=== PATIENT | male | born 1970 | race Caucasian/White ===

== ENCOUNTER 2023-02-08 12:18 | Emergency (ER) | payer OTHER ==
[~2023-02-08] VITALS: Ht 182 cm; Wt 87.0 kg
--- NOTE | 2023-02-08 12:30 | ED Cough/URI ---
General Chief Complaint: Cough/Cold/Flu Symptoms Stated Complaint: CHEST CONGESTION Source: patient Exam Limitations: no limitations History of Present Illness Date Seen by Provider: Feb 08, 2023 Time Seen by Provider: 12:21 Initial Comments 52-year-old male with longstanding smoking history coming in due to 1 week of productive cough and congestion. Very mild dyspnea associated with it. Has been productive of sometimes green sputum. Denies any real chest pain associated with it, fever, nausea, vomiting, diarrhea, abdominal pain, rash, weakness, numbness, or any other concerns. He smoked for more than 20 years and then transitioned over to a vape. He is otherwise denying any other acute complaints. Allergies and Home Medications Allergies Coded Allergies: No Known Drug Allergies (Unverified , 02/08/23) Patient Home Medication List Home Medication List Reviewed: Yes Albuterol Sulfate (Proventil Hfa) 90 Mcg Hfa.aer.ad, 2 PUFF INH Q4H PRN for WHEEZING Prescribed by: RUBY NGUYEN on 02/08/23 1251 Doxycycline Hyclate (Doxycycline Hyclate) 100 Mg Tablet, 100 MG PO BID Prescribed by: RUBY NGUYEN on 02/08/23 1251 Methylprednisolone (Methylprednisolone Dose Pack) 4 Mg Tab.ds.pk, 4 MG PO UD Prescribed by: RUBY NGUYEN on 02/08/23 1251 Review of Systems Review of Systems Constitutional: No fever EENTM: no symptoms reported Respiratory: cough Cardiovascular: no symptoms reported Gastrointestinal: no symptoms reported Genitourinary: no symptoms reported Musculoskeletal: no symptoms reported Skin: no symptoms reported Psychiatric/Neurological: No Symptoms Reported Hematologic/Lymphatic: No Symptoms Reported Past Gdhibgz-Ysdsgk-Jecnlo Hx Patient Social History Tobacco Use?: Yes Use of E-Cig and/or Vaping dev: Yes Substance use?: No Alcohol Use?: No Physical Exam Vital Signs - First Documented 02/08/23 02/08/23 12:29 12:31 Temp 36.2 Pulse 77 Resp 18 B/P (MAP) 116/91 (99) Pulse Ox 99 O2 Delivery Room Air Capillary Refill : Height: '" Weight: lbs. oz. kg; BMI Method: General Appearance: WD/WN, no apparent distress Eyes: Bilateral Eye Normal Inspection HEENT: PERRL/EOMI, normal ENT inspection, pharynx normal Neck: non-tender, full range of motion, supple, normal inspection Respiratory: chest non-tender, no respiratory distress, no accessory muscle use, wheezing Cardiovascular: regular rate, rhythm, no edema, no murmur Gastrointestinal: normal bowel sounds, non tender, soft; No distended, No guarding, No rebound Extremities: normal range of motion, non-tender, normal inspection, no pedal edema, no calf tenderness, normal capillary refill Neurologic/Psychiatric: no motor/sensory deficits, alert, normal mood/affect Skin: normal color, warm/dry Progress/Results/Core Measures Suspected Sepsis SIRS Temperature: Pulse: Respiratory Rate: Blood Pressure / Mean: Results/Orders My Orders Orders - RUBY NGUYEN MD Chest Pa/Lat (2 View) (02/08/23 12:26) Albuterol/Ipra Inhalation Soln (Duoneb I (02/08/23 12:45) Doxycycline Hyclate Tablet (Vibramycin T (02/08/23 12:31) Dexamethasone Oral Soln (Ed) (Decadron I (02/08/23 12:31) Medications Given in ED Current Medications Medications Dose Ordered Sig/Greg Route Start Time Stop Time Status Last Admin Dose Admin Albuterol/ Ipratropium 3 ml ONCE ONCE INH 02/08/23 12:45 02/08/23 12:46 DC 02/08/23 12:36 3 ML Vital Signs/I&O 02/08/23 02/08/23 12:29 12:31 Temp 36.2 Pulse 77 Resp 18 B/P (MAP) 116/91 (99) Pulse Ox 99 O2 Delivery Room Air Room Air Capillary Refill : Progress Note : Progress Note 52-year-old male with above history coming in due to 1 week of productive cough in the setting of longstanding cigarette smoke use. Differential includes pneumonia versus COPD exacerbation versus less likely PE versus viral infection. ABCs were intact and vitals were stable on presentation. Physical exam significant for bilateral wheezing. Chest x-ray on my interpretation with likely right upper lobe infiltrate with some hazy opacities in that region. Patient likely has COPD. He will be given a breathing treatment here, steroids, and antibiotics. On reassessment, wheezing had improved in all lung galicia. He is low risk for PE per [place] criteria and I do not believe further labs or imaging is warranted at this time. Prescription for antibiotics and albuterol will be sent to his pharmacy. I believe he is otherwise stable for discharge with outpatient follow-up. He was sent home with strict return precautions. Diagnostic Imaging Diagonstic Imaging: Xray (chest) Comments [facility] [place], [place] NAME: TERESA AYALA [facility] REC#: [id number] PT STATUS: REG ER : 1970 PHYSICIAN: RUBY NGUYEN MD ADMIT DATE: 02/08/23/ER FS Draft Date of Exam:02/08/23 CHEST PA/LAT (2 VIEW) EXAMINATION: Chest 2 view HISTORY: productive cough and SOB COMPARISON: None available. FINDINGS: Heart size and pulmonary vasculature are normal. The lungs are clear without consolidation, pleural effusion, or pneumothorax. Degenerative changes of the thoracic spine. Osseous structures are otherwise intact. Likely calcified granuloma in the left lower lung. IMPRESSION: 1. No acute radiographic abnormality in the chest. Dictated on workstation # [id number] Dict: 02/08/23 1237 Trans: 02/08/23 1238 CVB [id number] Interpreted by: MICAH STOLL DO Electronically signed by: Departure Impression Primary Impression: COPD exacerbation Additional Impression: Pneumonia Qualified Codes: J18.9 - Pneumonia, unspecified organism Disposition: 01 HOME, SELF-CARE Condition: Stable Departure-Patient Inst. Decision time for Depature: 12:55 Referrals: NO,LOCAL PHYSICIAN (PCP/Family) Primary Care Physician Patient Instructions: Pneumonia, Adult ED Add. Discharge Instructions: We are concerned you likely have pneumonia. You will be on antibiotics for the next week. Unless you have a fever, it is okay for you to be around others. We are also concerned given your smoking history that you may have something called COPD. We recommend following up with your regular doctor regarding this. We will start you on an inhaler as well. Take the next dose of the antibiotic doxycycline tonight before bed. Start the steroids tomorrow since you received some in the ER today. Scripts Methylprednisolone (Methylprednisolone Dose Pack) 4 Mg Tab.ds.pk 4 MG PO UD for 6 Days, #21 PKG PER DOSE PACK INSTRUCTIONS Prov: RUBY NGUYEN MD 02/08/23 Albuterol Sulfate (Proventil Hfa) 90 Mcg Hfa.aer.ad 2 PUFF INH Q4H PRN for WHEEZING for 30 Days, #1 EA Prov: RUBY NGUYEN MD 02/08/23 Doxycycline Hyclate (Doxycycline Hyclate) 100 Mg Tablet 100 MG PO BID for 7 Days, #14 TAB 0 Refills Prov: RUBY NGUYEN MD 02/08/23 Work/School Note: Work Release Form Date Seen in the Emergency Department: Feb 08, 2023 Return to Work: Feb 09, 2023 Restrictions: No Restrictions RUBY NGUYEN MD Feb 08, 2023 12:30
[2023-02-08] MEDS ORDERED: DOXYCYCLINE 100 MG (VIBRAMYCIN) TABLET PO STA (12:31)
--- NOTE | 2023-02-08 12:38 | Diagnostic Imaging Report ---
EXAMINATION: Chest 2 view HISTORY: productive cough and SOB COMPARISON: None available. FINDINGS: Heart size and pulmonary vasculature are normal. The lungs are clear without consolidation, pleural effusion, or pneumothorax. Degenerative changes of the thoracic spine. Osseous structures are otherwise intact. Likely calcified granuloma in the left lower lung. IMPRESSION: 1. No acute radiographic abnormality in the chest. Dictated by: Dictated on workstation # [id number]
[2023-02-08] MEDS ORDERED: RT-ALBUTEROL/IPRATROPIUM 3 ML (DUONEB) VIAL INH ONE (12:45)
[2023-02-08] MEDS ORDERED: ALBU6.7H13 INH (12:51)
[2023-02-08] MEDS ORDERED: METH4TAB10 PO (12:51)
[2023-02-08] MEDS ORDERED: DOXY100T2 PO (12:51)
[2023-02-08 12:54] VITALS: BP 116/91
== END 2023-02-08 12:54 | disposition home or self-care (01) ==
LOC: ER FS 12:20
DX: J44.0 Chronic obstructive pulmonary disease with (acute) lower respiratory infection (principal); J18.9 Pneumonia, unspecified organism; J44.1 Chronic obstructive pulmonary disease with (acute) exacerbation; F17.290 Nicotine dependence, other tobacco product, uncomplicated
CPT/HCPCS: 71046; 94640

== ENCOUNTER 2023-05-03 16:46 | Emergency (ER) | payer OTHER ==
[~2023-05-03] VITALS: Ht 182 cm; Wt 85.0 kg
[~2023-05-03 16:46] MED LIST: ALBU6.7H13 INH; DOXY100T2 PO; METH4TAB10 PO
--- NOTE | 2023-05-03 17:01 | ED General ---
General Chief Complaint: General Problems/Pain Stated Complaint: FEVER,COUGH,SOA,NAUSEA,FALL History of Present Illness Date Seen by Provider: May 03, 2023 Time Seen by Provider: 16:58 Initial Comments 53 yr M with PMH of HIV on HAART medication with undetectable viral load, is here with multiple complaints. Pt has been having diarrhea, cough, nausea for the past 1 week. Pt has approximately 2 to 3 episodes of diarrhea per day. Pt felloff the garbage truck one week ago and now c/o right knee pain and swelling and posterior neck pain since then. Denies headache, fever and chills, abdominal pain, vomiting, dysuria. Allergies and Home Medications Allergies Coded Allergies: No Known Drug Allergies (Unverified , 02/08/23) Patient Home Medication List Home Medication List Reviewed: Yes Albuterol Sulfate (Proventil Hfa) 90 Mcg Hfa.aer.ad, 2 PUFF INH Q4H PRN for WHEEZING Prescribed by: RUBY NGUYEN on 02/08/23 1251 Doxycycline Hyclate (Doxycycline Hyclate) 100 Mg Tablet, 100 MG PO BID Prescribed by: RUBY NGUYEN on 02/08/23 1251 Methylprednisolone (Methylprednisolone Dose Pack) 4 Mg Tab.ds.pk, 4 MG PO UD Prescribed by: RUBY NGUYEN on 02/08/23 1251 Review of Systems Review of Systems Constitutional: see HPI, malaise EENTM: no symptoms reported Respiratory: cough Cardiovascular: no symptoms reported Gastrointestinal: diarrhea, nausea Genitourinary: no symptoms reported Musculoskeletal: no symptoms reported Skin: no symptoms reported Psychiatric/Neurological: No Symptoms Reported Hematologic/Lymphatic: No Symptoms Reported Immunological/Allergic: no symptoms reported Physical Exam Vital Signs Capillary Refill : Height, Weight, BMI Height: '" Weight: lbs. oz. kg; 26.00 BMI Method: General Appearance: No Apparent Distress, WD/WN HEENT: PERRL/EOMI, Normal ENT Inspection, Pharynx Normal Neck: Full Range of Motion, Normal Inspection, Supple, Tender Lateral Respiratory: Chest Non Tender, Lungs Clear, Normal Breath Sounds Cardiovascular: Regular Rate, Rhythm Gastrointestinal: Soft Back: Normal Inspection, No Vertebral Tenderness Extremity: Normal Range of Motion (right knee), Non Tender (To palpation of right knee), Swelling (hard swelling of right knee, no crepitus) Neurologic/Psychiatric: Alert, Oriented x3, No Motor/Sensory Deficits Skin: Normal Color Progress/Results/Core Measures Suspected Sepsis SIRS Temperature: Pulse: Respiratory Rate: Blood Pressure / Mean: Results/Orders Lab Results Laboratory Tests Test 05/03/23 16:56 Range/Units My Orders Orders - BASSAM LEBRON MD Covid 19 Inhouse Test (05/03/23 16:57) Influenza A And B By Pcr (05/03/23 16:57) Vital Signs/I&O Capillary Refill : Progress Note : Progress Note 1. RIGHT KNEE BONE CONTUSION/ ARTHRITIS FLARE OF C-SPINE: - XR RIGHT KNEE: no acute findings - XR C-SPINE: Degeneration of C4-C5 and C6-C7. - Pt is taking ibuprofen at home. advised to continue it for pain. Also advised [id number] Lidoderm patches 2. VIRAL GASTROENTERITIS: - COVID TEST/ Flu Test: Negative -Advised to follow-up with PCP in the next 3 to 4 days if symptoms continue and do not improve. -Adequate hydration and nutrition advised -[place] diet advised -The patient was seen in the ED, and treated appropriately to presentation at a specific point in time. Patient is informed that there is a possibility that disease and illness can evolve and change in acuity rapidly or slowly after patient is discharged from the ER. Precautionary advice given to the patient for immediate return to ER if symptoms worsen or do not resolve, and to seek emergency care sooner rather than later. Pt also advised on the importance of PCP follow up and compliance with management and follow up plan with PCP and/or specialist, as this is part of the management plan. Pt verbally expressed understanding. Diagnostic Imaging Diagonstic Imaging: Xray Plain Films/CT/US/NM/MRI: c-spine, knee Comments [facility]. [place], [place] NAME: TERESA AYALA [employer] REC#: [id number] PT STATUS: REG ER : 1970 PHYSICIAN: BASSAM LEBRON MD ADMIT DATE: 05/03/23/ER FS Draft Date of Exam:05/03/23 CERVICAL SPINE 3 VIEW OR LESS CERVICAL SPINE 3 VIEW OR LESS INDICATION: Neck pain after fall COMPARISON: None available. TECHNIQUE: 3 views of the cervical spine. FINDINGS: Straightening of the cervical spine without traumatic subluxation. No acute fractures detected. Multilevel degenerative changes most advanced from C4-C5 through C6-C7. No prevertebral soft tissue swelling. Lateral masses of C1 and C2 are normal in alignment. IMPRESSION: No acute fracture or traumatic malalignment in the cervical spine by radiography. Dictated on workstation # [id number] Dict: 05/03/23 1728 Trans: 05/03/231729 CV [id number] Interpreted by: YVETTE STAPLETON MD Electronically signed by: [facility] [place], [place] NAME: TERESA AYALA [employer] [facility] REC#: [id number] PT STATUS: REG ER : 1970 PHYSICIAN: BASSAM LEBRON MD ADMIT DATE: 05/03/23/ER FS Signed Date of Exam:05/03/23 KNEE 2 VIEW RIGHT KNEE 2 VIEW RIGHT INDICATION: Knee pain after fall COMPARISON: None available. TECHNIQUE: 2 views of right knee FINDINGS: No knee joint effusion. No acute fracture. Joint spaces are well-preserved. Alignment is normal. IMPRESSION: No fracture about the right knee. Dictated by: Dictated on workstation # [id number] Dict: 05/03/231728 Trans: 05/03/231729 [facility] [id number] Interpreted by: YVETTE STAPLETON MD Electronically signed by: YVETTE STAPLETON MD 05/03/231729 Departure Impression Primary Impression: Contusion of right knee, initial encounter Additional Impressions: Cervical spine arthritis Viral gastroenteritis Disposition: 01 HOME, SELF-CARE Condition: Stable Departure-Patient Inst. Referrals: NO,LOCAL PHYSICIAN (PCP/Family) Primary Care Physician Patient Instructions: Neck Stretches, Neck Pain Exercises, Minor Contusion ED, Neck Pain ED, Diarrhea, Adult ED, Viral Gastroenteritis, Adult (DC) Add. Discharge Instructions: - Pt is taking ibuprofen at home. advised to continue it for pain. Also advised [id number]-[id number] Lidoderm patches -Advised to follow-up with PCP in the next 3 to 4 days if symptoms continue and do not improve. -Adequate hydration and nutrition advised -[place] diet advised All discharge instructions reviewed with patient and/or family. Voiced underst anding. BASSAM LEBRON MD May 03, 2023 17:00
--- NOTE | 2023-05-03 17:30 | Diagnostic Imaging Report ---
CERVICAL SPINE 3 VIEW OR LESS INDICATION: Neck pain after fall COMPARISON: None available. TECHNIQUE: 3 views of the cervical spine. FINDINGS: Straightening of the cervical spine without traumatic subluxation. No acute fractures detected. Multilevel degenerative changes most advanced from C4-C5 through C6-C7. No prevertebral soft tissue swelling. Lateral masses of C1 and C2 are normal in alignment. IMPRESSION: No acute fracture or traumatic malalignment in the cervical spine by radiography. Dictated by: Dictated on workstation # [id number]
--- NOTE | 2023-05-03 17:31 | Diagnostic Imaging Report ---
KNEE 2 VIEW RIGHT INDICATION: Knee pain after fall COMPARISON: None available. TECHNIQUE: 2 views of right knee FINDINGS: No knee joint effusion. No acute fracture. Joint spaces are well-preserved. Alignment is normal. IMPRESSION: No fracture about the right knee. Dictated by: Dictated on workstation # [id number]
[2023-05-03 17:47] VITALS: BP 124/79
[2023-05-03] MEDS ORDERED: KETOROLAC INJ 30 MG/ML VIAL ONE (18:06)
[2023-05-03] MEDS ORDERED: KETOROLAC INJ 30 MG/ML VIAL IM ONE (18:15)
== END 2023-05-03 18:10 | disposition home or self-care (01) ==
LOC: EDUNIT# 16:46 → ER FS 16:48
DX: S80.01XA Contusion of right knee, initial encounter (principal); M48.32 Traumatic spondylopathy, cervical region; A08.4 Viral intestinal infection, unspecified; B20 Human immunodeficiency virus [HIV] disease; Z79.899 Other long term (current) drug therapy; Z20.822 Contact with and (suspected) exposure to COVID-19; V69.9XXA Occupant (driver) (passenger) of heavy transport vehicle injured in unspecified traffic accident, initial encounter
CPT/HCPCS: 72040; 73560; 87636; 96372